=== PATIENT | male | born 1960 | race American Indian/Alaskan Native ===

== ENCOUNTER 2019-03-20 10:44 | Day surgery (SDC) | payer OTHER ==
[~2019-03-20 10:44] MED LIST: SODIUM CHLORIDE 0.9% 1000 ML 1,000 ML IV SCH
[2019-03-20] MEDS ORDERED: LIDOCAINE MPF (2%) 20 MG/1 ML VIAL 5 ML ONE (11:00)
[2019-03-20] MEDS ORDERED: ALBUTEROL 2.5 MG/3 ML NEBU IH NR (11:20)
[2019-03-20] MEDS ORDERED: ALBUTEROL 2.5 MG/3 ML NEBU IH ONE (11:27)
--- NOTE | 2019-03-20 11:31 | Anesthesia Day of Surgery ---
Anesthesia Day of Surgery - Day of Surgery Patient Examined: Yes Patient H&P Reviewed: Yes Patient is NPO: Yes
--- NOTE | 2019-03-20 11:31 | Anesthesia Consultation ---
Anesthesia Consult and Med Hx Date of service: 03/20/19 - Airway Anesthetic Teeth Evaluation: Good ROM Head & Neck: Adequate Mental/Hyoid Distance: Adequate Mallampati Class: Class II Intubation Access Assessment: Good - Pulmonary Exam CTA: Yes - Cardiac Exam Cardiac Exam: RRR - Pre-Operative Health Status ASA Pre-Surgery Classification: ASA3 Proposed Anesthetic Plan: MAC (Obesity , SOUTH , Smoker for MAC) - Pulmonary Hx Smoking: Yes - Cardiovascular System Hx Hypertension: Yes
[2019-03-20] MEDS ORDERED: PROPOFOL 200 MG/20 ML VIAL IV ONE ×2 (11:53)
[2019-03-20] MEDS ORDERED: fentaNYL 100 MCG/2 ML INJ ONE (11:53)
--- NOTE | 2019-03-20 12:46 | Procedure Note ---
Date of procedure: 03/20/19 Pre-op diagnosis: GERD/ Colon Polyp Screening Post-op diagnosis: other (Mild to Moderate Erosive Esophagitis/Gastritis/Portal Gastropathy/Colon Polyps (proximal Transverse Colon and Rectum)/ Mild to Moderate,Internal Hemorrhoid) Procedure: EGD with Biopsy and Colonoscopy with Cold Biopsy and Cold, Snare Polypectomy Anest[place]: [facility] [place] Surgeon: HOLDEN BELCHER Estimated blood loss: minimal Pathology: list Specimen disposition: to lab Condition: stable Disposition: same day (Treat with PPI. Avoid aspirin and NSAID for 4 days; otherwise resume home medication. Follow up in 1 to 2 weeks ([phone]).)
--- NOTE | 2019-03-20 13:12 | Operative Report ---
INDICATIONS: A 58-year-old slightly obese -[place] gentleman who has a history of smoking, asthma, diabetes mellitus type 2 and hypertension, who has been having GERD symptoms. EGD was done to assess for the severity of his findings. PROCEDURE IN DETAIL: The procedure was done after getting informed consent with MAC anesthesia. Instrument was passed through the hypopharynx into the esophagus, which showed [id number] distal erosive esophagitis. Stomach showed some mild portal gastropathy and gastritis. Biopsy was done from the gastric antrum, gastric body and angular incisura to rule out for H. pylori and atrophic gastritis. The pylorus was patent. The duodenum in the first and second portion appeared normal. There were no gastric or duodenal ulcers noted. There was minimal bleeding from the biopsy sites and no complications associated with the procedure. ASSESSMENT: Gastroesophageal reflux disease symptoms, [id number] erosive esophagitis, gastritis, portal gastropathy. PLAN: Treat the patient with PPI, have the patient avoid aspirin and aspirin-related products for the next 4 days. Otherwise, resume home medication. The patient will be advised to refrain from drinking alcohol and also advised to try and lose some weight and also refrain from smoking. The colonoscopy would be done as part of colon polyp screening. The patient said to have had a colonoscopy done several years ago. At that time, there were no polyps noted, and advised to have the patient follow up in the office in 1-2 weeks' time. The procedure was done in the GI lab with assistance of the GI lab team, which included JEET, Lexi, Soni herrera, as well as with assistance of anesthesia. Again, there was minimal bleeding associated with the procedure. No complications associated with the procedure. JOB# [id number] PEDRO/NORMA
--- NOTE | 2019-03-20 13:13 | Operative Report ---
PROCEDURE: Colonoscopy with cold biopsy and cold snare polypectomy. INDICATIONS: A 58-year-old slightly obese -[place] gentleman with underlying history of asthma, history of smoking, history of diabetes mellitus type 2 and hypertension. He had an EGD done prior to the colonoscopy, which showed [id number] erosive esophagitis, gastritis and mild portal gastropathy. Colonoscopy was done as part of colon polyp screening. His last colonoscopy was said to be 9 years ago. There were no polyps noted at that time. DESCRIPTION OF PROCEDURE: The procedure was done after getting informed consent with MAC anesthesia. Initial rectal exam was unremarkable. Instrument was passed through the rectum onto the cecum, which was identified with ileocecal valve and appendiceal orifice. Visualization was fair to slightly poor. The mucosa was washed with copious amounts of water. The cecum, ascending colon showed normal mucosa. In the proximal transverse colon, there was a 10 mm sessile polyp noted that was removed by cold snare polypectomy and retrieved. The remaining part of the transverse colon, descending colon and sigmoid showed normal mucosa. There was a small possibly hyperplastic polyp noted in the rectum, which was about 6 mm in diameter, removed by cold biopsy and the rectum showed mild to moderate internal hemorrhoid on the retroverted view. There was minimal bleeding from the biopsy and the polypectomy sites and no complications associated with the procedure. ASSESSMENT: Colon polyp, screening colon polyps, one in the proximal transverse colon, one in the rectum, mild to moderate internal hemorrhoids and again there was minimal bleeding associated with the polypectomy and no complications associated with the procedure. PLAN: To treat the patient with PPI because of the EGD findings of esophagitis, gastritis. The patient will be asked to avoid aspirin and aspirin-related products for the next 4 days. Otherwise, resume home medication and follow up in the office in 1-2 weeks' time. The procedure was done in the GI lab with assistance of the GI lab team, which included JEET Elliott and Soni herrera and with assistance of anesthesia. JOB# [id number] PEDRO/NORMA
[2019-03-20 13:33] VITALS: BP 155/72
--- NOTE | 2019-03-20 14:10 | Post Anesthesia Evaluation ---
- Post Anesthesia Evaluation Patient Participated: Yes Airway Patent: Yes Stable Respiratory Function: Yes Nausea/Vomiting: No Temp > 96.8F: Yes Pain Manageable: Yes Adequeate Hydration: Yes Anesthesia Complications: No Block Receding Appropriately: Not Applicable Patient on Ventilator: No
== END 2019-03-20 10:45 | disposition home or self-care (01) ==
LOC: GIO 10:44
DX: Z12.11 Encounter for screening for malignant neoplasm of colon (principal); D12.3 Benign neoplasm of transverse colon; K29.50 Unspecified chronic gastritis without bleeding; K62.1 Rectal polyp; J45.909 Unspecified asthma, uncomplicated; E11.9 Type 2 diabetes mellitus without complications; K21.0 Gastro-esophageal reflux disease with esophagitis; I10 Essential (primary) hypertension; K64.8 Other hemorrhoids; F17.210 Nicotine dependence, cigarettes, uncomplicated; Z79.899 Other long term (current) drug therapy; Z98.890 Other specified postprocedural states
CPT/HCPCS: 43239; 45380; 45385; 82962; 88305; 88342; J2704; J3010; J7030